=== PATIENT | male | born 1950 | race Caucasian/White ===

== ENCOUNTER 2019-07-28 07:38 | Inpatient (IN) | payer BC, MEDICARE ==
[~2019-07-28] VITALS: Ht 182.9 cm; Wt 87.5 kg
[2019-07-28] VITALS (26 sets, daily range): BP systolic 86–135; BP diastolic 51–97
--- NOTE | 2019-07-28 07:45 | NUR ---
and , from home, c/o abd pain x 1 month, worse 1 hr DIRECTOR DIETETICS DEPARTMENT, hypotensive on scene 86/50, fentanyl 100 mcg and NS 450cc given by rescue. Patient a/ox4, breathing even and unlabored, no sob noted, patient cold to touch, pale, family at bedside. Patient still c/o intermittent abdominal pain. Presented with RAC G18 IV.
[2019-07-28] MEDS ORDERED: OXYC5CAP18 PO (07:51)
[2019-07-28] MEDS ORDERED: SENN-18 PO (07:53)
[2019-07-28] MEDS ORDERED: IV NS 0.9% 1,000 ML BAG IV ONE ×2 (08:00→09:30)
--- NOTE | 2019-07-28 08:12 | NUR ---
Blood drawn and sent to lab. Urinal provided for a urine sample.
[2019-07-28 08:15] LABS: BASOPHILS # (AUTO) 0.1 /CMM (0.0-0.2); BASOPHILS % (AUTO) 0.6 % (0.0-2.0); EOSINOPHILS % (AUTO) 1.4 % (0.0-6.0); HEMATOCRIT 22 % (39-51); LYMPHOCYTES # (AUTO) 1.8 /CMM (0.8-4.8); LYMPHOCYTES % (AUTO) 7.8 % (20.0-44.0); MEAN CORPUSCULAR HGB CONC 32 g/dl (31.0-36.0); MEAN CORPUSCULAR VOLUME 84 fL (80-96); MONOCYTES # (AUTO) 3.4 /CMM (0.1-1.30); MONOCYTES % (AUTO) 14.7 % (2.0-12.0); NEUTROPHILS # (AUTO) 17.3 /CMM (1.8-8.9); NEUTROPHILS % (AUTO) 75.5 % (43.0-81.0); PLATELET COUNT (AUTO) 436 /CMM (150-450); RED BLOOD CELL COUNT(AUTO) 2.67 MIL/uL (4.5-6.0)
[2019-07-28 08:16] LABS: HEMOGLOBIN 7.2 g/dL (13.5-17.5)
[2019-07-28 08:27] LABS: CALCIUM, SERUM 8.9 mg/dL (8.5-10.1); CARBON DIOXIDE 23 mmol/L (21-32); CHLORIDE 101 mmol/L (98-107); CREATININE 1.4 mg/dL (0.6-1.3); GLUCOSE 152 mg/dL (74-106); POTASSIUM 4.5 mmol/L (3.5-5.1); SODIUM SERUM 134 mmol/L (136-145); UREA NITROGEN, BLOOD 33 mg/dL (7-18)
[2019-07-28 08:34] LABS: ALANINE AMINOTRANSFERASE 83 U/L (12-78); ALBUMIN 2.3 g/dL (3.4-5.0); ALKALINE PHOSPHATASE 142 U/L (46-116); ASPARTATE AMINOTRANSFERASE 96 U/L (15-37); BILIRUBIN,DIRECT 0.3 mg/dL (0.0-0.2); BILIRUBIN,TOTAL 0.7 mg/dL (0.2-1.0); LIPASE 33 U/L (73-393); TOTAL PROTEIN, SERUM 6.1 g/dL (6.4-8.2)
[2019-07-28] MEDS ORDERED: HYDROMORPHONE 1 MG/1 ML DISP.SYRIN ONE (08:47)
[2019-07-28] MEDS ORDERED: PIPERACILLIN /TAZOBACTAM 3.375 G in IV D5W 50 ML IV ONE (09:00)
[2019-07-28] MEDS ORDERED: HYDROMORPHONE INJ 0.5 MG/0.5 ML SYRINGE IV ONE (09:00)
--- NOTE | 2019-07-28 09:04 | NUR ---
PAGED SURGERY DIALYSIS RN.
--- NOTE | 2019-07-28 09:46 | NUR ---
CALLED NURSING SUP FOR ICU BED.
[2019-07-28] MEDS ORDERED: PANTOPRAZOLE 40 MG VIAL IV ONE (09:52)
[2019-07-28] MEDS ORDERED: MAG HYDROX/AL HYDROX/SIMETH 30 ML UDC PO PRN (10:00)
[2019-07-28] MEDS ORDERED: Z GUARD REMEDY 2 OZ OINT TP PRN (10:00)
[2019-07-28] MEDS ORDERED: ACETAMINOPHEN 325 MG TABLET PO PRN (10:00)
[2019-07-28] MEDS ORDERED: ZOLPIDEM TARTRATE 5 MG TABLET PO PRN (10:00)
[2019-07-28] MEDS ORDERED: MAGNESIUM HYDROXIDE 30 ML UDC PO PRN (10:00)
--- NOTE | 2019-07-28 10:09 | NUR ---
REPORT GIVEN TO BRINDA BUSTOS. PATIENT IS GOING TO ROOM 255 ICU.
--- NOTE | 2019-07-28 10:09 | NUR ---
DR. CHACON AT BEDSIDE.
--- NOTE | 2019-07-28 10:37 | NUR ---
PATIENT TRANSFERRED TO ROOM 255 VIA ACLS PROTOCOL. PATIENT IN NO DISTRESS. ENDORSED TO BRINDA BUSTOS.
--- NOTE | 2019-07-28 11:00 | NUR ---
ICU/RN PT ADMITTED FROM ER .DUE TO LOW BP.99/66.AFEBRILE.NSR 89 BPM ON MONITOR.ON 3 L N/C SAT O2-100%.PT C/O OF ABDOMINAL PAIN.CT DONE IN ER.DR CHACON SEEN THE PT.ABDOMEN DISTENDED AND PAINFUL WITH PALPATION. 2L NS WAS GIVEN IN ER.LABS REVIEW.IV ON THE LEFT AND RIGHT AC # 18.SKIN INTACT.PT IS AWAKE,ALERT.FAMILY AT BEDSIDE.
[2019-07-28] MEDS: VANCOMYCIN 1 GM in IV D5W 250 ML IV SCH ×2 (11:15→23:32)
[2019-07-28] MEDS: HYDROCODONE/APAP 5/325MG 1 EACH TABLET PO PRN ×2 (12:18→13:42)
--- NOTE | 2019-07-28 12:26 | NUR ---
ICU/RN PT C/O OF ABDOMINAL PAIN 9-02/27.NORCO 1 TAB GIVEN ORDERED.
[2019-07-28] MEDS: IV NS 0.9% 1,000 ML IV PRN ×2 (12:56→20:46)
[2019-07-28] MEDS ORDERED: MORPHINE SULFATE INJ 4 MG/ML DISP.SYRIN IM PRN (15:00)
[2019-07-28] MEDS: ONDANSETRON HCL/PF 4 MG/2 ML VIAL IVP PRN (15:07)
--- NOTE | 2019-07-28 15:10 | NUR ---
ICU/RN PT IS STILL C/O OF ABDOMINAL PAIN -02/27.MORPHINE SULFATE 4 MG IV GIVEN.AND ZOFRAN IV GIVEN ORDERED.CONTINUE MONITORING.
[2019-07-28] MEDS: PIPERACILLIN /TAZOBACTAM 3.375 G in IV D5W 50 ML IV SCH ×2 (15:24→20:54)
[2019-07-28] MEDS ORDERED: NOREPINEPHRINE 8 MG in IV D5W 500 ML IV PRN ×4 (15:30)
--- NOTE | 2019-07-28 16:01 | NUR ---
ICU/RN H/H-7.2/22. 1 UNIT PRBC GIVEN ORDERED.NO S/S OF REACTION NOTED.
[2019-07-28] MEDS: ENSURE ENLIVE 237 ML LIQUID (VANILLA) PO SCH (17:06)
[2019-07-28 17:08] LABS: BASOPHILS % (AUTO) 0.2 % (0.0-2.0); EOSINOPHILS % (AUTO) 0.2 % (0.0-6.0); HEMATOCRIT 24 % (39-51); HEMOGLOBIN 7.5 g/dL (13.5-17.5); LYMPHOCYTES # (AUTO) 1.2 /CMM (0.8-4.8); LYMPHOCYTES % (AUTO) 5.5 % (20.0-44.0); MEAN CORPUSCULAR HGB CONC 32 g/dl (31.0-36.0); MEAN CORPUSCULAR VOLUME 86 fL (80-96); MONOCYTES # (AUTO) 2.4 /CMM (0.1-1.30); MONOCYTES % (AUTO) 11.1 % (2.0-12.0); NEUTROPHILS # (AUTO) 17.8 /CMM (1.8-8.9); PLATELET COUNT (AUTO) 321 /CMM (150-450); WHITE BLOOD COUNT (AUTO) 21.4 K/uL (4.3-11.0)
[2019-07-28 17:42] LABS: BAND % (MANUAL) 5 % (0.0-5.0); LYMPHOCYTES % (MANUAL) 7 % (16-48); MONOCYTES % (MANUAL) 8 % (0-11.0); NEUTROPHILS % (MANUAL) 80 (42-76)
--- NOTE | 2019-07-28 18:05 | NUR ---
ICU/RN PAIN MEDS ARE GIVEN ORDERED.PT IS RESTING IN THE BED,V/S STABLE,AFEBRILE.CONTINUE MONITORING.
[2019-07-28] MEDS: MORPHINE SULFATE INJ 4 MG/ML DISP.SYRIN IV PRN (18:16)
[2019-07-28] MEDS ORDERED: PHYTONADIONE INJ 10 MG/1 ML AMPUL SQ SCH (18:30)
[2019-07-28] MEDS: MORPHINE SULFATE SR 15 MG TABLET.SA PO SCH ×2 (18:49→20:59)
--- NOTE | 2019-07-28 19:00 | NUR ---
RN OPENING NOTES RECEIVED PATIENT IN BED, AWAKE, A/OX4, ABLE TO MAKE NEEDS KNOWN. NSR HR 80'S ON MONITOR. ON 4L VIA NASAL CANNULA, NO SOB OR RESPIRATORY DISTRESS NOTED. PATIENT C/O OF ABDOMINAL PAIN 7/10, NOTED DISTENDED AND PAINFUL WITH PALPATION, WILL ADMINISTER PRN PAIN MEDICATION. IV SITES LEFT AND RIGHT AC #18, BOTH FLUSHING AND PATENT. WILL CONT TO MONITOR CLOSELY.
[2019-07-28] MEDS: oxyCODONE HCL SR 10MG TAB.SR.12H PO SCH (20:59)
--- NOTE | 2019-07-28 22:00 | NUR ---
RN NOTES PATIENT NOTED WITH NO URINE OUTPUT SINCE THIS AM. ASKED PATIENT IF HE FEELS THE NEED TO URINATE, STATED NO AND REFUSING MÉNDEZ CATH DESPITE DISCUSSION OF RISKS AND BENEFITS. WILL CONT TO MONITOR.
[2019-07-29] VITALS (47 sets, daily range): BP systolic 80–124; BP diastolic 45–77
[2019-07-29] MEDS: MORPHINE SULFATE INJ 4 MG/ML DISP.SYRIN IV PRN ×2 (02:12→12:05)
--- NOTE | 2019-07-29 02:34 | NUR ---
RN NOTES PLASMA TRANSFUSION 1UNIT DONE. NO TRANSFUSION REACTION NOTED. WILL CONT TO MONITOR.
--- NOTE | 2019-07-29 02:36 | NUR ---
RN NOTES AT 0200 PATIENT NOTED WITH NO URINE OUTPUT STILL. PATIENT STATED HE DOES NOT FEEL THE NEED TO URINATE HOWEVER EXPLAINED TO THE PATIENT HE IS RECEIVING IVF AND RN NEED TO CHECK BLADDER VIA BLADDER SCAN. BLADDER SCAN SHOWED >500ML. PATIENT STATED "I WANT TO TRY TO URINATE" PATIENT UNABLE TO URINATE BY HIMSELF. EXPLAINED TO PATIENT HE WILL NEED URINARY CATHETER TO MONITOR HIS KIDNEY FUNCTION. AT 0230 PAGED STRATEGIC BUSINESS DEVELOPMENT HOSPITALIST. AWAITING FOR RESPONSE.
--- NOTE | 2019-07-29 02:41 | NUR ---
RN NOTES FREIGHT CLERK HOSPITALIST MADE AWARE OF PATIENT UNABLE TO URINATE. STATED OKAY TO INSERT MÉNDEZ TO MONITOR KIDNEY FUNCTION. WILL ATTEND TO ORDERS.
[2019-07-29] MEDS: PIPERACILLIN /TAZOBACTAM 3.375 G in IV D5W 50 ML IV SCH ×4 (03:10→20:42)
--- NOTE | 2019-07-29 03:30 | NUR ---
RN NOTES MÉNDEZ CATH INSERTION DONE. PATIENT TOLERATED WELL. MÉNDEZ CATH DRAINING VIA GRAVITY, CARRI COLORED URINE NOTED.
[2019-07-29 05:19] LABS: ALBUMIN 2.4 g/dL (3.4-5.0); BILIRUBIN,DIRECT 0.3 mg/dL (0.0-0.2); BILIRUBIN,TOTAL 0.8 mg/dL (0.2-1.0); CALCIUM, SERUM 8.4 mg/dL (8.5-10.1); CREATININE 1.8 mg/dL (0.6-1.3); MAGNESIUM 1.9 mg/dL (1.8-2.4); PHOSPHORUS 5.7 mg/dL (2.5-4.9); POTASSIUM 5.2 mmol/L (3.5-5.1); TOTAL PROTEIN, SERUM 6.4 g/dL (6.4-8.2)
[2019-07-29 05:37] LABS: THYROID STIMULATING HORMONE 21.492 uIU/mL (0.358-3.74)
[2019-07-29] MEDS: IV NS 0.9% 1,000 ML IV PRN ×2 (06:06→15:39)
[2019-07-29 06:16] LABS: APPEARANCE,URINE CLEAR (CLEAR); BILIRUBIN,URINE SMALL (NEGATIVE); BLOOD, URINE TRACE Ery/uL (NEGATIVE); COLOR,URINE YELLOW (YELLOW); KETONES,URINE NEGATIVE (NEGATIVE); LEUKOCYTE ESTERASE ,URINE NEGATIVE (NEGATIVE); NITRITE, URINE NEGATIVE (NEGATIVE); PROTEIN,URINE 30 mg/dl (NEGATIVE); UGLUCOSE NEGATIVE (NEGATIVE)
[2019-07-29 06:24] LABS: BACTERIA,URINE Few /HPF (None Seen); SQUAMOUS EPITHELIAL CELL,UR Few /HPF (None Seen)
--- NOTE | 2019-07-29 06:28 | NUR ---
RN CLOSING NOTES PATIENT SLEEPING IN BED, BUT EASY TO AROUSE, A/OX4, ABLE TO MAKE NEEDS KNOWN. TOLERATED 2 FFP TRANSFUSION, NO ADVERSE REACTION NOTED. NSR HR 80'S ON MONITOR. ON 4L VIA NASAL CANNULA, NO SOB OR RESPIRATORY DISTRESS NOTED, SATURATING >95%. IV SITES LEFT AND RIGHT AC #18, BOTH FLUSHING AND PATENT, IVF RUNNING ORDERED, TOLERATING WELL, NO S/S OF INFILTRATION/INFECTION NOTED. KEPT PT CLEAN, DRY, AND COMFORTABLE. SAFETY MEASURES IN PLACE; CL WITHIN REACH, SR UP X2, BED LOCKED AND IN LOWEST POSITION. WILL CONT TO MONITOR CLOSELY. WILL ENDORSE TO AM RN FOR RADHA.
[2019-07-29 07:25] LABS: BASOPHILS # (AUTO) 0.1 /CMM (0.0-0.2); BASOPHILS % (AUTO) 0.5 % (0.0-2.0); EOSINOPHILS % (AUTO) 0.9 % (0.0-6.0); LYMPHOCYTES # (AUTO) 1.2 /CMM (0.8-4.8); LYMPHOCYTES % (AUTO) 7.1 % (20.0-44.0); MEAN CORPUSCULAR HGB CONC 32 g/dl (31.0-36.0); MEAN CORPUSCULAR VOLUME 85 fL (80-96); MONOCYTES # (AUTO) 2.5 /CMM (0.1-1.30); MONOCYTES % (AUTO) 14.7 % (2.0-12.0); NEUTROPHILS # (AUTO) 12.8 /CMM (1.8-8.9); NEUTROPHILS % (AUTO) 76.8 % (43.0-81.0); PLATELET COUNT (AUTO) 262 /CMM (150-450); RED BLOOD CELL COUNT(AUTO) 2.31 MIL/uL (4.5-6.0); WHITE BLOOD COUNT (AUTO) 16.7 K/uL (4.3-11.0)
[2019-07-29 07:32] LABS: HEMATOCRIT 20 % (39-51); HEMOGLOBIN 6.3 g/dL (13.5-17.5)
[2019-07-29] MEDS: PANTOPRAZOLE 40 MG TABLET.DR PO SCH (07:48)
[2019-07-29] MEDS: ENSURE ENLIVE 237 ML LIQUID (VANILLA) PO SCH ×3 (09:00→17:00)
[2019-07-29 09:15] LABS: EOSINOPHILS % (MANUAL) 1 % (0-4); LYMPHOCYTES % (MANUAL) 9 % (16-48); MONOCYTES % (MANUAL) 15 % (0-11.0); NEUTROPHILS % (MANUAL) 75 (42-76)
[2019-07-29] MEDS: MORPHINE SULFATE SR 15 MG TABLET.SA PO SCH ×2 (10:30→20:43)
[2019-07-29] MEDS: oxyCODONE HCL SR 10MG TAB.SR.12H PO SCH ×2 (10:30→20:43)
[2019-07-29] MEDS: VANCOMYCIN 1 GM in IV D5W 250 ML IV SCH (11:57)
--- NOTE | 2019-07-29 12:00 | NUR ---
[facility] records in chart
[2019-07-29] MEDS ORDERED: FEE PK DOSING 1 MIN EA MC ONE (13:58)
[2019-07-29] MEDS ORDERED: NOREPINEPHRINE 8 MG in IV NS 0.9% 242 ML IV PRN (14:30)
[2019-07-29 18:04] LABS: HEMOGLOBIN 6.9 g/dL (13.5-17.5)
[2019-07-29] MEDS ORDERED: diphenhydrAMINE HCL 50 MG/ML VIAL IV ONE (18:30)
[2019-07-29] MEDS ORDERED: ACETAMINOPHEN 325 MG TABLET PO ONE (18:30)
--- NOTE | 2019-07-29 19:29 | NUR ---
WEB CONTENT DEVELOPER Shift Summary Patient remains A/Ox4, family at bedside, on 3L O2. Shoulder biopsy result request faxed to Cara Cardenas. Dr. Negrete aware of 99F temp. Trejo output today <300mL total. Patient did not eat at all today. MAP >65 throughout shift. Endorsed to NOC RN for transfusion of 1U RBC + Dr. Negrete's new orders
[2019-07-29] MEDS: SENNOSIDES 8.6 MG TABLET PO SCH (21:02)
[2019-07-29] MEDS ORDERED: VANCOMYCIN 0.75 GM in IV D5W 250 ML IV SCH (23:00)
[2019-07-30] VITALS (26 sets, daily range): BP systolic 84–129; BP diastolic 48–82
[2019-07-30 01:18] LABS: HEMOGLOBIN 7.4 g/dL (13.5-17.5)
--- NOTE | 2019-07-30 01:26 | NUR ---
Received lab value hbg-7.4. Per Dr. Negrete will give 1 unit PRBC and check h/h in am labs.
[2019-07-30] MEDS: IV NS 0.9% 1,000 ML IV PRN ×3 (03:48→22:34)
[2019-07-30] MEDS: PIPERACILLIN /TAZOBACTAM 3.375 G in IV D5W 50 ML IV SCH ×4 (03:48→20:34)
[2019-07-30 05:33] LABS: BASOPHILS # (AUTO) 0.1 /CMM (0.0-0.2); BASOPHILS % (AUTO) 0.5 % (0.0-2.0); EOSINOPHILS % (AUTO) 1.6 % (0.0-6.0); HEMATOCRIT 26 % (39-51); HEMOGLOBIN 8.5 g/dL (13.5-17.5); LYMPHOCYTES # (AUTO) 1.1 /CMM (0.8-4.8); LYMPHOCYTES % (AUTO) 6.9 % (20.0-44.0); MEAN CORPUSCULAR HGB CONC 33 g/dl (31.0-36.0); MEAN CORPUSCULAR VOLUME 85 fL (80-96); MONOCYTES # (AUTO) 2.1 /CMM (0.1-1.30); MONOCYTES % (AUTO) 12.9 % (2.0-12.0); NEUTROPHILS # (AUTO) 12.8 /CMM (1.8-8.9); NEUTROPHILS % (AUTO) 78.1 % (43.0-81.0); PLATELET COUNT (AUTO) 266 /CMM (150-450); RED BLOOD CELL COUNT(AUTO) 3.04 MIL/uL (4.5-6.0); WHITE BLOOD COUNT (AUTO) 16.4 K/uL (4.3-11.0)
--- NOTE | 2019-07-30 05:59 | NUR ---
RECIEIVING NOTES: AT THE BEDSIDE ALERT ALERT AND ORIENTATED. COLOR PALE. H/H LOW SIGNED THE PAPER TO RELEASE THE MD REPORT FOR THE LIQUID BIOPSY RESULT FROM [facility] OBTAINED THE PO NUMBER [phone] FAX NUMBER [phone]
[2019-07-30 06:18] LABS: CALCIUM, SERUM 8.4 mg/dL (8.5-10.1); CREATININE 2.2 mg/dL (0.6-1.3); POTASSIUM 4.8 mmol/L (3.5-5.1)
[2019-07-30 08:07] LABS: HIV SCRN 4G wRFX Non Reactive (Non Reactive)
[2019-07-30] MEDS: MORPHINE SULFATE SR 15 MG TABLET.SA PO SCH ×2 (08:57→20:33)
[2019-07-30] MEDS: oxyCODONE HCL SR 10MG TAB.SR.12H PO SCH ×2 (08:58→20:34)
[2019-07-30] MEDS: PANTOPRAZOLE 40 MG TABLET.DR PO SCH (08:58)
[2019-07-30] MEDS: ENSURE ENLIVE 237 ML LIQUID (VANILLA) PO SCH ×3 (09:02→18:58)
[2019-07-30 10:17] LABS: HEMOGLOBIN 8.8 g/dL (13.5-17.5)
[2019-07-30] MEDS: MORPHINE SULFATE INJ 4 MG/ML DISP.SYRIN IV PRN ×3 (11:32→22:34)
[2019-07-30] MEDS ORDERED: VANCOMYCIN 0.75 GM in IV D5W 250 ML IV SCH (17:00)
[2019-07-30] MEDS: SENNOSIDES 8.6 MG TABLET PO SCH (20:37)
[2019-07-31] MEDS: PIPERACILLIN /TAZOBACTAM 3.375 G in IV D5W 50 ML IV SCH ×4 (02:59→21:24)
[2019-07-31 04:00] VITALS: BP 122/77
[2019-07-31] MEDS: MORPHINE SULFATE INJ 4 MG/ML DISP.SYRIN IV PRN ×2 (05:40→14:43)
--- NOTE | 2019-07-31 06:11 | NUR ---
ENDING NOTES: pAIN CONTROLLED WITH ORDERED PAINMEDICATION WITH TWICW NEEDING TO MORPHINE 4 MG IVP FOR THE IN BETWEEN PAIN WHICH IS EFFECTIVE. ASSISTED HIM TO THE BATHROOM AND HE HAD A GOOD BM, SENOKAT GIVEN LAST NIGHT. REMAINS PALE OBTAINED THE FAX NUMBER FOR [facility] AND HOURS AVAILABLE TO REQUEST THE REPORTS FOR THE LIQUID BONE BX
[2019-07-31 06:27] LABS: BASOPHILS % (AUTO) 0.3 % (0.0-2.0); HEMATOCRIT 28 % (39-51); LYMPHOCYTES % (AUTO) 6.3 % (20.0-44.0); MEAN CORPUSCULAR HGB CONC 33 g/dl (31.0-36.0); MEAN CORPUSCULAR VOLUME 86 fL (80-96); MONOCYTES # (AUTO) 1.8 /CMM (0.1-1.30); MONOCYTES % (AUTO) 11.3 % (2.0-12.0); NEUTROPHILS # (AUTO) 12.6 /CMM (1.8-8.9); NEUTROPHILS % (AUTO) 80.1 % (43.0-81.0); PLATELET COUNT (AUTO) 278 /CMM (150-450); RED BLOOD CELL COUNT(AUTO) 3.24 MIL/uL (4.5-6.0); WHITE BLOOD COUNT (AUTO) 15.7 K/uL (4.3-11.0)
[2019-07-31 06:48] LABS: CREATININE 1.9 mg/dL (0.6-1.3); MAGNESIUM 2.1 mg/dL (1.8-2.4); PHOSPHORUS 4.1 mg/dL (2.5-4.9); POTASSIUM 4.3 mmol/L (3.5-5.1)
--- NOTE | 2019-07-31 07:05 | NUR ---
RN NOTES RECEIVED PT SITTING ON AT THE EDGE OF THE BED, A/Ox4, ON 3 L O2 N/C , RESPIRATION EVEN AND UNLABORED, NO DISTRESS NOTED, NS AT 125CC/HR RUNNING VIA LEFT FOREARM IV SITE G 20 , VSS STABLE, CONTINUE TO MONITOR
[2019-07-31 07:43] LABS: EOSINOPHILS % (MANUAL) 4 % (0-4); LYMPHOCYTES % (MANUAL) 11 % (16-48); MONOCYTES % (MANUAL) 13 % (0-11.0); NEUTROPHILS % (MANUAL) 72 (42-76)
[2019-07-31] MEDS: IV NS 0.9% 1,000 ML IV PRN ×2 (07:53→17:15)
[2019-07-31 08:00] VITALS: BP 105/66
[2019-07-31 08:05] LABS: FREE T4 (FREE THYROXINE) 0.78 ng/dL (0.76-1.46)
[2019-07-31] MEDS: oxyCODONE HCL SR 10MG TAB.SR.12H PO SCH ×2 (08:45→21:00)
[2019-07-31] MEDS: PANTOPRAZOLE 40 MG TABLET.DR PO SCH (08:45)
[2019-07-31] MEDS: ENSURE ENLIVE 237 ML LIQUID (VANILLA) PO SCH ×3 (08:45→16:05)
[2019-07-31] MEDS: MORPHINE SULFATE SR 15 MG TABLET.SA PO SCH ×2 (08:48→21:00)
[2019-07-31 10:14] LABS: HEMOGLOBIN 9.2 g/dL (13.5-17.5)
--- NOTE | 2019-07-31 12:00 | NUR ---
RN NOTES PT GET C/O SOB AND PAIN WHEN HE WALKS TO THE BATHROOM , ADVISED AND ENCOURAGED PT TO USE URINAL , BUT PT REFUSED AND STILL WANTS TO GET OUT OF THE BED AND WALK TO THE BATHROOM .
[2019-07-31 16:00] VITALS: BP 110/76
[2019-07-31] MEDS ORDERED: MORPHINE SULFATE INJ 2 MG/ML DISP.SYRIN IV STA (17:38)
--- NOTE | 2019-07-31 17:38 | NUR ---
RN NOTES PT C/O GENERALIZED PAIN , 12/28 LEVEL , DR GOODE PAGED AND NOTIFED, NEW ORDER RECEIVED FOR 1 MG IV MORPHINE, PT MEDICATED PER MD ORDER .
--- NOTE | 2019-07-31 17:45 | NUR ---
RN NOTES PT UP AND SITTING ON THE EDGE OF THE BED, DIAPHORETIC AND SWEATY, BP 89/60 HR 82, O2 AT 97%, PT PLACED BACK FLAT ON THE BED, BP WENT UP TO 90/62, HR 84, O2 SAT 96%, DR GOODE PAGED TO BE NOTIFED. CONTINUE TO MONITOR PT .
--- NOTE | 2019-07-31 18:00 | NUR ---
RN NOTES BP=92/63 HR IN 80'S , PT IS ORIENTED , FAMILY AT THE BEDSIDE , STILL C/O PAIN , 5/10 LEVEL , CONTINUE TO MONITOR .
--- NOTE | 2019-07-31 18:15 | NUR ---
RN NOTES VSS STABLE AT THIS TIME, NO RETURN CALL FROM MD YET , WILL ENDORSE TO CLAY GRINDER NURSE FOR CONTINUITY OF CARE.
--- NOTE | 2019-07-31 19:20 | NUR ---
RN OPENING NOTES: Received pt in bed, w/ family at bedside A&0x4. On 3L NC tolerating well. No respiratory distress noted. Pt NPO status at this time. Pt able to ambulate w/ assistance but encouraged to use urinal at bedside. Has IV site on left FA. Line flushed and patent, dressing c/di. NS running at 125cc/hr. Per report, AM RN paged Dr. Neves for pt's complaint of pain and low BP. Awaiting response. Will f/u. Safety measures in place, bed in lowest and locked position, side rails up x2, call light within reach. Will continue to monitor.
[2019-07-31 20:00] VITALS: BP_SYST 104; BP_DIAS 55; BP_DIAS 65
[2019-07-31] MEDS: SENNOSIDES 8.6 MG TABLET PO SCH (21:24)
--- NOTE | 2019-07-31 22:08 | NUR ---
RN NOTE: Pt c/o 02/27 generalized body pain. BP is 104/65 and is NPO. Paged Dr. Whaley received order for Morphine 2mg IVP. Orders noted and carried out.
--- NOTE | 2019-07-31 22:20 | NUR ---
RN NOTE: [facility] to verify new order for morphine. Will administer as ordered.
[2019-07-31] MEDS ORDERED: MORPHINE SULFATE INJ 2 MG/ML DISP.SYRIN IV ONE (22:30)
[2019-08-01] VITALS (14 sets, daily range): BP systolic 90–123; BP diastolic 47–81
[2019-08-01] MEDS: PIPERACILLIN /TAZOBACTAM 3.375 G in IV D5W 50 ML IV SCH ×3 (02:25→15:07)
[2019-08-01] MEDS: IV NS 0.9% 1,000 ML IV PRN ×2 (02:25→16:10)
[2019-08-01 04:18] LABS: BASOPHILS # (AUTO) 0.1 /CMM (0.0-0.2); BASOPHILS % (AUTO) 0.4 % (0.0-2.0); EOSINOPHILS % (AUTO) 0.3 % (0.0-6.0); LYMPHOCYTES # (AUTO) 1.2 /CMM (0.8-4.8); LYMPHOCYTES % (AUTO) 4.7 % (20.0-44.0); MEAN CORPUSCULAR HGB CONC 32 g/dl (31.0-36.0); MEAN CORPUSCULAR VOLUME 87 fL (80-96); MONOCYTES # (AUTO) 2.2 /CMM (0.1-1.30); MONOCYTES % (AUTO) 9.2 % (2.0-12.0); NEUTROPHILS % (AUTO) 85.4 % (43.0-81.0); PLATELET COUNT (AUTO) 309 /CMM (150-450); RED BLOOD CELL COUNT(AUTO) 2.25 MIL/uL (4.5-6.0); WHITE BLOOD COUNT (AUTO) 24.5 K/uL (4.3-11.0)
[2019-08-01 04:32] LABS: CALCIUM, SERUM 8.7 mg/dL (8.5-10.1); POTASSIUM 5.2 mmol/L (3.5-5.1)
[2019-08-01 04:47] LABS: HEMATOCRIT 20 % (39-51); HEMOGLOBIN 6.3 g/dL (13.5-17.5)
--- NOTE | 2019-08-01 04:48 | NUR ---
RN NOTE: Received call from lab for critical H/H Hg 6.3 and [address] Whaley w/ new order to transfuse 1 unit of PRBC. Orders noted and carried out.
[2019-08-01 06:16] LABS: LYMPHOCYTES % (MANUAL) 5 % (16-48); MONOCYTES % (MANUAL) 5 % (0-11.0); NEUTROPHILS % (MANUAL) 90 (42-76)
--- NOTE | 2019-08-01 06:48 | NUR ---
RN NOTE: Called lab to f/u with type and screen and PRBC's for pt. Stated it will be ready in about 40 mins.
--- NOTE | 2019-08-01 06:56 | NUR ---
RN CLOSING NOTES: Pt resting in bed, A&Ox4. On 3L NC tolerating well. No respiratory distress noted. IV site on left forearm patent and flushed. NS running at 125cc/hr. Tolerating well. Dressing c/d/i. All meds administered as ordered. No complaints of pain at this time. Received critical labs for H/H and got order to transfuse blood. Awaiting call from lab to know that blood is ready. Safety measures in place. Bed in lowest and locked position, side rails up x2, call light within reach. Will endorse to AM nurse for RADHA.
--- NOTE | 2019-08-01 07:14 | NUR ---
MS RN NOTES PATIENT IN BED SLEEPING, ABLE TO AROUSE EASILY WHEN NAME CALLED.AMBULATES WITH ASSISTANCE. SCHEDUEL FOR 1 UNIT BLOOD TRANSFUSION. LEFT FOREARM IV PATENT RUNNING NORMAL SALINE 125/HR. PATIENT NPO PER DR IGNACIO. WILL FOLLOW UP WITH NPO STATUES WITH MD. BED AT THE LOWEST POSITION LOCKED.CALL LIGHT WITHIN REACH. WILL CONTINUE TO MONITOR THE PATIENT.
[2019-08-01] MEDS: PANTOPRAZOLE 40 MG TABLET.DR PO SCH (07:30)
[2019-08-01 08:30] LABS: IMMUNOGLOBULIN A, SERUM 371 mg/dL (61-437); IMMUNOGLOBULIN G, SERUM 1539 mg/dL (700-1600); IMMUNOGLOBULIN M, SERUM 77 mg/dL (20-172)
[2019-08-01] MEDS: oxyCODONE HCL SR 10MG TAB.SR.12H PO SCH (09:00)
[2019-08-01] MEDS: MORPHINE SULFATE SR 15 MG TABLET.SA PO SCH ×2 (09:00→21:46)
[2019-08-01] MEDS: ENSURE ENLIVE 237 ML LIQUID (VANILLA) PO SCH ×3 (09:00→17:54)
--- NOTE | 2019-08-01 10:00 | NUR ---
MS RN NOTES REPORT GIVEN TO ABDIEL FOR RADHA. PATIENT IS COMFORTABLE IN BED A/OX4.
[2019-08-01] MEDS: MORPHINE SULFATE INJ 4 MG/ML DISP.SYRIN IV PRN ×2 (13:46→19:43)
--- NOTE | 2019-08-01 16:30 | NUR ---
MS/RN NOTES SPOKE TO VU IN THE LAB REGARDING THE STAT HH FOR THE PATIENT. ACCORDING TO HIM THEY WILL SEND SOMEONE TO DRAW IT RIGHT AWAY. AWAITING FOR SOMEONE TO DRAW BLOOD. PATIENT CONTINUES TO REMAIN IN STABLE CONDITION. WILL CONTINUE TO MONITOR CLOSELY.
[2019-08-01] MEDS ORDERED: diphenhydrAMINE HCL 50 MG/ML VIAL IV ONE ×2 (17:30→20:30)
[2019-08-01] MEDS ORDERED: ACETAMINOPHEN 325 MG TABLET PO ONE ×2 (17:30→20:30)
[2019-08-01] MEDS ORDERED: PHYTONADIONE INJ 10 MG/1 ML AMPUL SQ ONE (17:30)
--- NOTE | 2019-08-01 17:40 | NUR ---
MS/RN NOTES SPOKE TO LAB REGARDING THE FFP ORDER ACCORDING TO THEM THEY ARE WORKING ON IT. PATIENT CONTINUES TO REMAIN IN STABLE CONDITION. WILL CONTINUE TO MONITOR CLOSELY.
--- NOTE | 2019-08-01 19:21 | NUR ---
TELE/RN CLOSING NOTES PATIENT CONTINUES TO REMAIN IN STABLE CONDITION THROUGHOUT THE SHIFT. PROVIDED COMFORT AND SAFETY. PATIENT ABLE TO TOLERATE MEALS AND MEDS WELL. NO ACUTE DISTRESS AT THIS TIME. RESPIRATION EVEN AND UNLABORED. ENDORSED TO PM NURSE REGARDING THE TRANSFUSION OF FFP PER DR. IGNACIO. ALL NEEDS ANTICIPATED. CALL LIGHT WITHIN REACHED. BED LOCKED AND IN LOWEST POSITION. SAFETY MAINTAINED. WILL CONTINUE TO MONITOR CLOSELY.
[2019-08-01] MEDS: SENNOSIDES 8.6 MG TABLET PO SCH ×2 (21:32→21:55)
--- NOTE | 2019-08-01 21:56 | NUR ---
MS/RN UNIT #1 FFP JUST FINISHED, VITAL SIGNS STABLE, NO REACTION NOTED, WAITING FOR THE SECOND UNIT.
--- NOTE | 2019-08-01 22:50 | NUR ---
MANDI/RN FFP UNIT#2 STARTED. WILL MONITOR PER PROTOCOL.
--- NOTE | 2019-08-01 23:08 | NUR ---
MANDI/RN TRANSFUSION FINISHED, VITAL SIGNS STABLE, PATIENT APPEAR SLEEPING, APPEAR COMFORTABLE, NO SIGNS OF DISTRESS NOTED, NO TRANSFUSION REACTION NOTED, WILL CONTINUE TO MONITOR.
[2019-08-02] VITALS (8 sets, daily range): BP systolic 110–137; BP diastolic 77–82
[2019-08-02] MEDS: MORPHINE SULFATE INJ 4 MG/ML DISP.SYRIN IV PRN ×3 (01:12→08:40)
[2019-08-02] MEDS: IV NS 0.9% 1,000 ML IV PRN (01:47)
--- NOTE | 2019-08-02 04:06 | NUR ---
MANDI/RN C/O GENERAL BODY PAIN 10/10, MORPHINE 4 MG IVP WAS GIVEN ORDERED. BP 137/81, HR 87, O2 SAT 96% ON 4L O2.
--- NOTE | 2019-08-02 05:57 | NUR ---
MANDI/RN PER PATIENT HE HAS NOT VOIDED YET, BLADDER SCAN WAS DONE, 293 MLS. PER PATIENT IT IS NORMAL FOR HIM NOT TO URINATE DURING THE NIGHT, THAT HE IS GOING TO URINATE LATER.
--- NOTE | 2019-08-02 06:35 | NUR ---
MANDI/RN SLEEPING, EASILY AROUSABLE, APPEAR COMFORTABLE, ALL NEEDS ATTENDED AT THIS TIME, WILL CONTINUE TO MONITOR.
[2019-08-02 06:54] LABS: BASOPHILS # (AUTO) 0.1 /CMM (0.0-0.2); BASOPHILS % (AUTO) 0.4 % (0.0-2.0); EOSINOPHILS % (AUTO) 1.1 % (0.0-6.0); HEMATOCRIT 21 % (39-51); LYMPHOCYTES # (AUTO) 1.5 /CMM (0.8-4.8); LYMPHOCYTES % (AUTO) 8.1 % (20.0-44.0); MEAN CORPUSCULAR HGB CONC 33 g/dl (31.0-36.0); MEAN CORPUSCULAR VOLUME 88 fL (80-96); MONOCYTES # (AUTO) 2.1 /CMM (0.1-1.30); MONOCYTES % (AUTO) 11.5 % (2.0-12.0); NEUTROPHILS # (AUTO) 14.5 /CMM (1.8-8.9); NEUTROPHILS % (AUTO) 78.9 % (43.0-81.0); PLATELET COUNT (AUTO) 307 /CMM (150-450); RED BLOOD CELL COUNT(AUTO) 2.41 MIL/uL (4.5-6.0); WHITE BLOOD COUNT (AUTO) 18.4 K/uL (4.3-11.0)
[2019-08-02 07:20] LABS: CALCIUM, SERUM 9.3 mg/dL (8.5-10.1); CREATININE 2.3 mg/dL (0.6-1.3); POTASSIUM 4.9 mmol/L (3.5-5.1)
[2019-08-02] MEDS: PANTOPRAZOLE 40 MG TABLET.DR PO SCH (08:29)
[2019-08-02] MEDS: ENSURE ENLIVE 237 ML LIQUID (VANILLA) PO SCH ×3 (08:30→17:00)
[2019-08-02] MEDS: MORPHINE SULFATE SR 15 MG TABLET.SA PO SCH ×2 (08:38→21:00)
--- NOTE | 2019-08-02 08:43 | NUR ---
Pt A/O x4. No distress noted or reported, but reported Abd pain of level 10/10 that radiates to back and legs and described as constant and aching. Morphine 4 mg IVP administered per MD PRN orders. Will reassess. See eMAR. Pt on 2L O2 via N/C. O2 Sat=99%. Pt stated that he gets SOB when in severe pain. All safety precautions in place. Bed alarm on for safety. Monitoring continued.
--- NOTE | 2019-08-02 09:00 | NUR ---
Dr. Neves here to see pt. Pain uncontrolled on current regimen. New orders for pain regimen. See orders. Pt H/H low. Plan to transfuse pt. Monitoring continued.
[2019-08-02 09:47] LABS: BAND % (MANUAL) 2 % (0.0-5.0); EOSINOPHILS % (MANUAL) 1 % (0-4); LYMPHOCYTES % (MANUAL) 5 % (16-48); MONOCYTES % (MANUAL) 12 % (0-11.0); NEUTROPHILS % (MANUAL) 80 (42-76)
[2019-08-02] MEDS ORDERED: HYDROMORPHONE INJ 2 MG/ML DISP.SYRIN IV PRN (10:00)
[2019-08-02] MEDS: ONDANSETRON HCL/PF 4 MG/2 ML VIAL IVP PRN ×2 (10:47→17:56)
--- NOTE | 2019-08-02 11:26 | NUR ---
1126: Dilaudid 2 mg IVP administered per MD one time order. Will reassess. 1156: Pt asleep. Easily arousable, stated that pain medication effective. Monitoring continued.
--- NOTE | 2019-08-02 17:00 | NUR ---
Pt noted to be SOB and c/o abd pain of 8/10. Bladder scan done which revealed>863 ml urine in bladder. Dr. Negrete ordered F/C insertion. 16 Mongolian F/C inserted via sterile technique. 650 ml hazy dark dorys urine out, but urine still draining to gravity below bladder, bag off floor. Pt reported immediate relief of abd pain. Pt stated that pain is at tolerable level of 4/10 and refused Morphine at this time. Pt expressed relief of SOB at this time. O2 Sat on 5L O2 via N/C=98%. Pt refused all meals today and refused all drinks today. BS= 74 mg/dl. Pt was able to sip a few sips of apple juice. Dr. Negrete also ordering Blood transfusion to be transfused by shift production supervisor RN. Close monitoring of pt continued.
[2019-08-02] MEDS ORDERED: ACETAMINOPHEN 325 MG TABLET PO ONE (18:00)
[2019-08-02] MEDS ORDERED: diphenhydrAMINE HCL 50 MG/ML VIAL IV ONE (18:00)
--- NOTE | 2019-08-02 18:00 | NUR ---
NOtified Dr. Neves re: pt's BS= 74 mg/dl. Pt was able to sip a few sips of apple juice. NO new orders. Will reassess pt's need for change in IVF to possible D5 NS in am. Currently infusing NS ml/h. Pt to have blood transfusion tonight.
--- NOTE | 2019-08-02 19:15 | NUR ---
MS RN NOTES RECEIVED PT IN BED AWAKE WITH FAMILY AT BEDSIDE. PT A/O X2-3 WITH PERIODS OF CONFUSION. RESPIRATIONS EVEN AND UNLABORED WITH NO S/S OF ACUTE DISTRESS OR SOB NOTED. NO COMPLAINTS OF PAIN AT THIS TIME. PT NOTED WITH LHAND #22G PATENT AND INTACT INFUSING NS @125CC/HR. PT NOTED WITH FC DRAINING WELL. SAFETY MEASURES IN PLACE WITH BED IN LOWEST LOCKED POSITION WITH SIDE RAILS UP X2. CALL LIGHT WITHIN REACH. WILL CONTINUE TO MONITOR.
--- NOTE | 2019-08-02 19:25 | NUR ---
SBAR report given to AKASH Vasquez from [facility].
[2019-08-02] MEDS: SENNOSIDES 8.6 MG TABLET PO SCH (22:23)
[2019-08-03] VITALS (10 sets, daily range): BP systolic 124–137; BP diastolic 76–88
[2019-08-03] MEDS: IV NS 0.9% 1,000 ML IV PRN ×2 (01:20→16:52)
[2019-08-03] MEDS: MORPHINE SULFATE INJ 4 MG/ML DISP.SYRIN IV PRN ×4 (03:34→22:23)
[2019-08-03 07:28] LABS: BASOPHILS # (AUTO) 0.1 /CMM (0.0-0.2); BASOPHILS % (AUTO) 0.6 % (0.0-2.0); EOSINOPHILS % (AUTO) 1.2 % (0.0-6.0); HEMATOCRIT 24 % (39-51); HEMOGLOBIN 7.6 g/dL (13.5-17.5); LYMPHOCYTES # (AUTO) 0.9 /CMM (0.8-4.8); LYMPHOCYTES % (AUTO) 5.4 % (20.0-44.0); MEAN CORPUSCULAR HGB CONC 32 g/dl (31.0-36.0); MEAN CORPUSCULAR VOLUME 88 fL (80-96); MONOCYTES % (AUTO) 12.1 % (2.0-12.0); NEUTROPHILS # (AUTO) 13.6 /CMM (1.8-8.9); NEUTROPHILS % (AUTO) 80.7 % (43.0-81.0); PLATELET COUNT (AUTO) 302 /CMM (150-450); RED BLOOD CELL COUNT(AUTO) 2.69 MIL/uL (4.5-6.0); WHITE BLOOD COUNT (AUTO) 16.8 K/uL (4.3-11.0)
--- NOTE | 2019-08-03 07:30 | NUR ---
MS RN NOTES PT IN BED AWAKE. PT A/O X2-3 WITH PERIODS OF CONFUSION. RESPIRATIONS EVEN AND UNLABORED WITH NO S/S OF ACUTE DISTRESS OR SOB NOTED THROUGHOUT SHIFT. NO COMPLAINTS OF PAIN AT THIS TIME. PT NOTED WITH LHAND #22G PATENT AND INTACT INFUSING NS @125CC/HR. PT NOTED WITH FC DRAINING WELL. SAFETY MEASURES IN PLACE WITH BED IN LOWEST LOCKED POSITION WITH SIDE RAILS UP X2. CALL LIGHT WITHIN REACH. WILL ENDORSE TO ONCOMING NURSE FOR RADHA.
[2019-08-03 07:43] LABS: CALCIUM, SERUM 9.2 mg/dL (8.5-10.1); CREATININE 1.8 mg/dL (0.6-1.3); POTASSIUM 4.7 mmol/L (3.5-5.1)
[2019-08-03 07:54] LABS: BAND % (MANUAL) 1 % (0.0-5.0); EOSINOPHILS % (MANUAL) 1 % (0-4); LYMPHOCYTES % (MANUAL) 4 % (16-48); MONOCYTES % (MANUAL) 10 % (0-11.0); MYELOCYTES % 4 % (0-0); NEUTROPHILS % (MANUAL) 80 (42-76)
--- NOTE | 2019-08-03 08:32 | NUR ---
Patient rounds to check status as he notified HYDRAULIC PRESS SERVICER, "I am dying." Commercial Door Installer asked how the patient is doing and attempted to clarify statement. Patient sent show card writer away. Says I only want an MD. This is the fourth time I asked for a Doctor. Nurse practitioner Paras Hansen notified. Transfer of care to Doctor Andmeln. Will continue to round on patient. Denys Ruiz RN
[2019-08-03] MEDS: PANTOPRAZOLE 40 MG TABLET.DR PO SCH (08:40)
[2019-08-03] MEDS: MORPHINE SULFATE SR 15 MG TABLET.SA PO SCH ×2 (08:40→21:13)
[2019-08-03] MEDS: ENSURE ENLIVE 237 ML LIQUID (VANILLA) PO SCH ×3 (08:50→17:41)
--- NOTE | 2019-08-03 19:17 | NUR ---
Handoff with night team registered nurse. Denys Ruiz RN
--- NOTE | 2019-08-03 19:30 | NUR ---
RN OPENING NOTE PT IN BED AWAKE. PT A/O X2-3 RESPIRATIONS EVEN AND UNLABORED WITH NO S/S OF ACUTE DISTRESS OR SOB NO COMPLAINTS OF PAIN AT THIS TIME. PT NOTED WITH LEFT HAND #22G PATENT AND INTACT INFUSING NS @125CC/HR. PT NOTED WITH FC DRAINING WELL. SAFETY MEASURES IN PLACE WITH BED IN LOWEST LOCKED POSITION WITH SIDE RAILS UP X2. CALL LIGHT WITHIN REACH. WILL CONTINUE TO MONITOR PT.
--- NOTE | 2019-08-03 21:00 | NUR ---
PT C/O PAIN 10/10 WITH INSPIRATION. PATIENT POINTING TO LEFT LATERAL RIB CAGE AREA. CHARGE NURSE Earnestine NOTIFIED.
[2019-08-03] MEDS: SENNOSIDES 8.6 MG TABLET PO SCH (21:13)
--- NOTE | 2019-08-03 22:20 | NUR ---
RN NOTE PT C/O PAIN 10 /10 PT STATES PAIN IS ALL OVER. PT UNCOMFORTABLE AND RESTLESS. CHARGE NURSE MADE AWARE WILL GIVE PRN PAIN MEDICATION ORDERED PER MD. CURRENT BP 139/27 PULSE 85 PT ON NC 5 LITERS. PT PLACED ON TELE MONITOR FOR SAFETY PRECAUTIONS. CHARGE NURSE AWARE
--- NOTE | 2019-08-03 23:21 | NUR ---
6405 PATIENT STILL WITH C/O SEVERE BACK PAIN DESPITE BEING MEDICATED WITH PRN PAIN MEDICATIONS. RESTLESS AND DIAPHORETIC. BP 139/77 WITH HR IN THE 100S. UNABLE TO APPRECIATE O2 SATURATION DUE TO COLD EXTREMITIES. WARM COMPRESS BEING APPLIED. PATIENT WITH EYES CLOSED BUT VERBALLY RESPONSIVE. REPOSITIONED MULTIPLE TIMES FOR COMFORT. ON O2 AT 5L PER NC. DR. ERIC NOTIFIED WITH ORDER TO CHANGE PAIN MEDICATION TO DILAUDID 2MG IVP EVERY 3 HOURS. ORDER NOTED AND CARRIED OUT. PATIENT BEING CLOSELY MONITORED. RAILS UP FOR SAFETY. CALL LIGHT WITHIN REACH.
[2019-08-03] MEDS ORDERED: HYDROMORPHONE INJ 2 MG/ML DISP.SYRIN IV PRN (23:30)
[2019-08-04] VITALS: BP 120/63
[2019-08-04] MEDS: IV NS 0.9% 1,000 ML IV PRN (00:20)
--- NOTE | 2019-08-04 00:55 | NUR ---
RN NOTE PT ON TELE MONITOR SINUS JANA HR 41. STERNUM RUBBED, PT OPENED EYES, PALPATED CAROTID PULSE, PULSE PRESENT VERIFIED WITH Carmen RN, PT BREATHING THROUGH MOUTH, PT PALE, PT ON PULSE OX 97% PULSE 67.
--- NOTE | 2019-08-04 00:56 | NUR ---
RN NOTE PT HR ON TELE MONITOR SINUS JANA 58. B/P MACHINE UNABLE TO OBTAIN B/P,CHARGE NURSE S.F, AND Carmen RN IN ROOM. CAROTID PULSE PALPABLE X2. CPT UNRESPONSIVE TO STERNUM RUB. CODE BLUE TO BE CALLED
--- NOTE | 2019-08-04 00:58 | NUR ---
RN NOTE CODE BLUE STARTED, PT UNRESPONSIVE
--- NOTE | 2019-08-04 00:58 | NUR ---
CODE TEAM ARRIVED PULSE NOTED
--- NOTE | 2019-08-04 00:59 | NUR ---
TEAM ARRIVED SEE CODE BLUE SHEET
--- NOTE | 2019-08-04 01:03 | NUR ---
RN NOTE CALLED, IVÁN LISTED ON NEXT OF KIN [phone], UNABLE TO REACH X 2. NUMBER LISTED MESSAGE STATES VOICEMAIL HAS NOT BEEN SET UP. TEAM MADE AWARE
--- NOTE | 2019-08-04 01:09 | NUR ---
RN NOTE CALLED WORK NUMBER LISTED FOR NEXT OF KIN IVÁN [phone], IVÁN ANSWERED INFORMED HER OF PT'S CURRENT SITUATION. AND FAMILY ON THEIR WAY TO THE HOSPITAL TEAM MADE AWARE. )
[2019-08-04] MEDS ORDERED: ADENOSINE 6 MG/2 ML VIAL IVP ONE (01:17)
[2019-08-04] MEDS ORDERED: AMIODARONE 150 MG/3 ML VIAL IV ONE (01:17)
[2019-08-04] MEDS ORDERED: EPINEPHRINE (1:10,000) SYRINGE 1 MG/10 ML DISP.SYRIN IVP ONE (01:17)
[2019-08-04] MEDS ORDERED: DEXTROSE 50%-WATER 50 ML DISP.SYRIN IV ONE (01:17)
--- NOTE | 2019-08-04 01:30 | NUR ---
FAMILY ARRIVED ANSWERED QUESTIONS ACCORDINGLY. FAMILY CURRENTLY AT BEDSIDE.
--- NOTE | 2019-08-04 01:41 | NUR ---
0141 DR. ERIC MADE AWARE THAT PATIENT .
--- NOTE | 2019-08-04 01:58 | NUR ---
0158 [facility] CALLED SPOKE WITH EVELYN TO REPORT , CASE #[id number] OBTAINED.
--- NOTE | 2019-08-04 02:50 | NUR ---
RN NOTE POST MORTEM CARE DONE. IV PERIPHERAL LINES REMOVED AND ET TUBE. IDENTIFICATION TAGS PLACED. ID BAND ON
--- NOTE | 2019-08-04 05:15 | NUR ---
RN NOTE PROVIDED WITH NURSING RECREATION AIDE NUMBER WILL CALL WHEN DECIDED ON MORTUARY.NO FURTHER QUESTIONS ASKED.
--- NOTE | 2019-08-04 05:28 | NUR ---
RN NOTE 0518 SECURITY ARRIVED ID IDENTIFIED X 2, PT TAKEN TO [place].
[2019-08-04 07:21] LABS: *SPE A/G RATIO 0.6 (0.7-1.7); *SPE ALBUMIN 2.3 g/dL (2.9-4.4); *SPE ALPHA-1-GLOBULIN 0.6 g/dL (0.0-0.4); *SPE ALPHA-2-GLOBULIN 0.7 g/dL (0.4-1.0); *SPE BETA GLOBULIN 0.9 g/dL (0.7-1.3); *SPE GLOBULIN, TOTAL 3.7 g/dL (2.2-3.9); *SPE M-SPIKE Not Observed g/dL (Not Observed); *SPEGAMMA GLOBULIN 1.4 g/dL (0.4-1.8)
== END 2019-08-04 01:18 | disposition expired | DRG 919 ==
LOC: ER 07:42 → ICU 10:02 → MEDSG1 07-30 18:10
PROVIDERS: ADMIT Student in an Organized Health Care Education/Training Program; ATTEND Family Medicine
PROC: 30233K1 Transfusion of Nonautologous Frozen Plasma into Peripheral Vein, Percutaneous Approach (ICD-10-PCS; principal; 2019-07-28)
PROC: 5A1935Z Respiratory Ventilation, Less than 24 Consecutive Hours (ICD-10-PCS; 2019-07-28)
PROC: 30233N1 Transfusion of Nonautologous Red Blood Cells into Peripheral Vein, Percutaneous Approach (ICD-10-PCS; 2019-07-30)
PROC: 5A1935Z Respiratory Ventilation, Less than 24 Consecutive Hours (ICD-10-PCS; 2019-08-04)
PROC: 0BH17EZ Insertion of Endotracheal Airway into Trachea, Via Natural or Artificial Opening (ICD-10-PCS; 2019-08-04)
PROC: 5A2204Z Restoration of Cardiac Rhythm, Single (ICD-10-PCS; 2019-08-04)
DX: K91.840 Postprocedural hemorrhage of a digestive system organ or structure following a digestive system procedure (principal); K66.1 Hemoperitoneum; J18.9 Pneumonia, unspecified organism; N17.0 Acute kidney failure with tubular necrosis; E43 Unspecified severe protein-calorie malnutrition; E87.1 Hypo-osmolality and hyponatremia; R18.8 Other ascites; C34.90 Malignant neoplasm of unspecified part of unspecified bronchus or lung; C78.7 Secondary malignant neoplasm of liver and intrahepatic bile duct; E87.2 Acidosis; D68.9 Coagulation defect, unspecified; D62 Acute posthemorrhagic anemia; C79.70 Secondary malignant neoplasm of unspecified adrenal gland; Z79.899 Other long term (current) drug therapy; E86.0 Dehydration; I10 Essential (primary) hypertension; Z87.891 Personal history of nicotine dependence; E87.5 Hyperkalemia; F15.11 Other stimulant abuse, in remission; E83.39 Other disorders of phosphorus metabolism; I49.01 Ventricular fibrillation; J43.2 Centrilobular emphysema; E86.1 Hypovolemia; D63.0 Anemia in neoplastic disease; E27.9 Disorder of adrenal gland, unspecified; Y84.8 Other medical procedures as the cause of abnormal reaction of the patient, or of later complication, without mention of misadventure at the time of the procedure; Y92.009 Unspecified place in unspecified non-institutional (private) residence as the place of occurrence of the external cause
CPT/HCPCS: 36415; 71045-TC; 73030-TC; 76700-TC; 80048-TC; 80061-TC; 80076-TC; 80202-TC; 81000-TC; 82378; 82728-TC; 82784; 82962-TC; 83540-TC; 83605-TC; 83690-TC; 83735-TC; 84100-TC; 84155; 84165; 84439-TC; 84443-TC; 84484-TC; 85025-TC; 85027-TC; 85385-TC; 85610-TC; 85730-TC; 86301; 86334; 86850-TC; 86921-TC; 87040-TC; 87081-TC; 87086-TC; 87899; 93970-TC; A4349; C9113; G0378; J0153; J0171; J0282; J1170; J1200; J2270; J2405; J2543; J3370; J3430; J7030; J7040; J7050; J7060; P9016-BL; P9017-BL